=== PATIENT | female | born 1950 | race Caucasian/White ===

== ENCOUNTER 2016-11-04 17:13 | Observation (INO) ==
--- NOTE | 2016-11-04 17:50 | Emergency Department Note ---
Disposition Clinical Impression: Weakness, History of fall, History of knee replacement procedure of right knee Disposition: Admitted As Inpatient Condition: Fair Referrals: NO,PCP [Non-Partnered Physician] - Forms: ED Satisfaction Letter Fall HPI - General Chief Complaint: ED Fall Stated Complaint: fall Time Seen by Provider: 11/04/16 17:20 Source: patient, EMS Mode of arrival: EMS Limitations: no limitations Nursing Notes Reviewed: Yes Vital Signs Reviewed: Yes - History of Present Illness HPI Narrative: Patient relates that she has had her right knee replaced in [facility]. She has been home only a couple days has been having increased difficulty getting up around the house. Today she fell to her knees when she was being assisted to the bathroom. There is significant difficulty getting her just back to a chair and she was transported here by EMS for evaluation. She denies any other point of injury. She states it just felt like her legs buckled because they were weak. She denies increase in any back pain or any numbness or tingling to the legs. She has headache or head injury. She denies neck pain or upper extremity complaints. She is not having chest pain, palpitations or shortness of breath. She has been on relatively aggressive pain medicine and the family had indicated that her speech was sometimes slurred. This may be contributing to some of her weakness. Pt Subjective Complaint: fall Onset (ago): day(s) Fall From: standing Fall Witnessed: yes Place Fall Occurred: home Loss of Consciousness: none Prolonged Down Time?: no Symptoms Prior to Fall: other (This) Context: tripped/slipped Location of injury - extremities: Right: knee Severity: moderate Quality: dull, aching Associated symptoms (after fall): Reports: weakness, unable to walk. Denies: headache, neck pain, numbness, chest pain, shortness of breath, abdominal pain, hematuria, lightheaded, vertigo, confusion - Related Data Home Medications Medication Instructions Recorded Confirmed ALPRAZolam [Xanax 1 MG Tablet] 1 mg PO QID PRN 11/04/16 11/04/16 Allopurinol [Zyloprim 300 MG] 300 mg PO DAILY 11/04/16 11/04/16 Amlodipine Besylate 10 mg PO DAILY 11/04/16 11/04/16 Cephalexin [Keflex] 500 mg PO QID 11/04/16 11/04/16 Clopidogrel Bisulfate [Plavix] 75 mg PO DAILY 11/04/16 11/04/16 Gabapentin [Gralise] 600 mg PO QAM AND QHS 11/04/16 11/04/16 HYDROmorphone [Dilaudid] 2 mg PO Q3H PRN 11/04/16 11/04/16 Levothyroxine [Synthroid] 88 mcg PO 0630 11/04/16 11/04/16 Metoprolol Succinate 100 mg PO DAILY 11/04/16 11/04/16 OxyCODONE/APAP 7.5/325 [Percocet 1 each PO Q4HR PRN 11/04/16 11/04/16 7.5/325 MG] Promethazine [Phenergan] 25 mg PO Q8HR PRN 11/04/16 11/04/16 Rivaroxaban [Xarelto] 10 mg PO DAILY 11/04/16 11/04/16 Rosuvastatin [Crestor] 40 mg PO HS 11/04/16 11/04/16 Valsartan [Diovan] 160 mg PO DAILY 11/04/16 11/04/16 Allergies Allergy/AdvReac Type Severity Reaction Status Date / Time ivp dye Allergy Swelling Uncoded 07/07/16 15:01 of Lip/Tongue/Throat All systems ED: reviewed and negative except as stated. Fall PMH - Past Medical History Medical history: Reports: arthritis (Doubt), hyperlipidemia, hypertension, thyroid disease, other (Morbid obesity) Surgical history: Reports: knee replacement (Right) Psychiatric history: Reports: no psych history - Social History Smoking Status: Never smoker Alcohol use: Reports: none Drug use: Reports: none Physical Exam - General Limitations: no limitations General appearance: alert, in no apparent distress - Head Head exam: atraumatic, normocephalic, normal inspection - Eye Eye exam: Present: normal appearance, PERRL, EOMI - ENT ENT exam: normal exam, normal oropharynx, mucous membranes moist - Neck Neck exam: Present: normal inspection, full ROM, trachea midline - Chest Chest inspection: Present: normal inspection, symmetric chest wall rise. Absent : tenderness - Respiratory Respiratory exam: Present: normal lung sounds bilaterally. Absent: respiratory distress, wheezes, prolonged expiratory phase - Cardiovascular Cardiovascular exam: Present: regular rate, normal rhythm, normal heart sounds. Absent: tachycardia - Abdominal Exam Abdominal exam: Present: soft, Non-Tender, normal bowel sounds. Absent: tenderness, distention, guarding, rebound, rigidity - Expanded Upper Extremity Exam Shoulder exam: Present: normal inspection, full ROM. Absent: tenderness, swelling Arm exam: Present: normal inspection, full ROM Elbow exam: Present: normal inspection, full ROM. Absent: tenderness, swelling Forearm/Wrist exam: Present: normal inspection, full ROM. Absent: tenderness, swelling Hand exam: Present: normal inspection, full ROM. Absent: tenderness, swelling Vascular exam: Normal: capillary refill, radial pulse - Expanded Lower Extremity Exam Hip/Pelvis exam: Present: normal inspection, full ROM. Absent: tenderness, swelling Upper leg exam: Present: normal inspection, full ROM. Absent: tenderness, swelling Knee exam: Present: other (Right knee has intact nehemiah over the anterior aspect of the right knee. School bit of serous drainage from the inferior portion of the incision without any erythema or induration. He has full extension of the knee and can flex to 30 degrees.) Lower leg exam: Present: normal inspection, full ROM Ankle exam: Present: normal inspection, full ROM. Absent: tenderness, swelling Foot/toe exam: Present: normal inspection, full ROM Neurovascular/Tendon exam: Present: normal capillary refill. Absent: motor deficit, sensory deficit, tendon deficit Gait: not tested/not observed - Back Exam Back exam: Present: normal inspection, full ROM. Absent: tenderness, vertebral tenderness - Neurological Exam Neurological exam: Present: alert, oriented X3, CN II-XII intact. Absent: motor sensory deficit - Psychiatric Psychiatric exam: Present: normal affect, normal mood - Skin Skin exam: Present: warm, dry, intact, normal color. Absent: diaphoresis, pallor Course Course Narrative: All the imaging results were discussed with the patient and family. They advised the patient really is too weak at this point for them to be able to manage at home. There are 2 people trying to assist her to the bathroom when she had had her legs give out and she went down onto both knees. They are advised that the physical therapist that comes to the house had to help get her up to a chair. As she was unable to further walk they called the squad to come here. I discussed options with the patient and family and feel it will be necessary to her in the hospital to have renal social worker and physical therapy assessment the morning. She will likely need placement to a rehabilitation facility for strengthening and assistance status post this knee replacement. 1850: Dr. Braga is agreeable to observation at this facility with consults in the morning. Verbal orders have been obtained for her observation period Vital Signs Temperature 100.2 F H 11/04/16 17:15 Pulse Rate 71 11/04/16 17:15 Respiratory Rate 16 11/04/16 17:15 Blood Pressure 123/68 11/04/16 17:15 O2 Sat by Pulse Oximetry 95 11/04/16 17:15 Temperature 100.2 F H 11/04/16 17:15 Pulse Rate 70 11/04/16 18:43 Respiratory Rate 18 11/04/16 18:43 Blood Pressure 114/65 11/04/16 18:43 O2 Sat by Pulse Oximetry 97 11/04/16 18:43 Oxygen Delivery Oxygen Delivery Nasal Cannula Fall - Differential Diagnosis Likely: traumatic injury - Radiology Data Radiology results reviewed: Yes I reviewed the patient's radiology results. Impressions Knee X-Ray 11/04/16 17:20 IMPRESSION: Anterior soft tissue swelling without fracture. D/ / Ananth Springer MD / Ananth Springer MD Interpreting Provider: Ananth Springer MD
[2016-11-04] MEDS ORDERED: Naloxone 0.4 MG/ML INJ IVP PRN (20:41)
[2016-11-04] MEDS ORDERED: MOM Conc 10 ML UD.LIQ PO PRN (20:41)
[2016-11-04] MEDS ORDERED: Ondansetron ODT 4 MG TAB.RAPDIS SL PRN (20:41)
[2016-11-04] MEDS: Gabapentin 300 MG CAPSULE PO SCH (21:50)
[2016-11-04] MEDS: cephALEXin 250 MG CAPSULE PO SCH (21:50)
[2016-11-04] MEDS: *HR* OxyCODONE/APAP 7.5/325 TABLET PO PRN (21:51)
[2016-11-04] MEDS: ALPRAZolam 1 MG TABLET PO PRN (21:51)
[2016-11-05] MEDS: *HR* OxyCODONE/APAP 7.5/325 TABLET PO PRN ×5 (06:13→23:53)
[2016-11-05] MEDS: cephALEXin 250 MG CAPSULE PO SCH (08:29)
[2016-11-05] MEDS: Metoprolol XL (24 HR) Succ 50 MG TAB.ER.24H PO SCH (08:30)
[2016-11-05] MEDS: *HR* Rivaroxaban 10 MG TABLET PO SCH (08:30)
[2016-11-05] MEDS: Gabapentin 300 MG CAPSULE PO SCH ×2 (08:30→21:38)
[2016-11-05] MEDS: amLODIPine 5 MG TABLET PO SCH (08:30)
[2016-11-05] MEDS ORDERED: Valsartan 160 MG TABLET PO SCH (09:00)
--- NOTE | 2016-11-05 12:05 | Internal Med History&Physical ---
Date of Encounter: 11/05/16 Time of Encounter: 11:35 Assessment and Plan (1) History of knee replacement procedure of right knee Current visit: Yes Status: Acute We will continue Xarelto for DVT prophylaxis. She will have physical therapy and occupational therapy evaluation. (2) Hypertension Current visit: Yes Status: Chronic Continue metoprolol and amlodipine. We will hold Diovan and see if azotemia improves. Qualifiers: Hypertension type: essential hypertension Qualified Code(s): I10 - Essential (primary) hypertension (3) CKD (chronic kidney disease) Current visit: Yes Status: Chronic We will hold Diovan and see if azotemia improves. Qualifiers: Chronic kidney disease stage: stage 3 (moderate) Qualified Code(s): N18.3 - Chronic kidney disease, stage 3 (moderate) (4) Hypothyroidism Current visit: Yes Status: Chronic We will check TSH in a.m. Qualifiers: Hypothyroidism type: unspecified Qualified Code(s): E03.9 - Hypothyroidism , unspecified Internal Medicine - H&P: HPI Chief complaint: Fall and knee pain Admitted From: Home Plans for Post Hospital Care: Home History of present illness: Ms. Conrad is a 66 year old female who came to emergency room stating she had a fall after attempting to arise from the toilet at home. She had right total knee replacement 11/01/2016 as a same day surgical procedure at [facility]. She was helped to the floor without significant obvious injury. Her was unable to get her off the floor himself so help was called. She was brought to emergency room and evaluated and admitted to [facility] until further disposition could be made. She states though the fall was a gradual lowering to the floor she still has worse pain in the knee than prior to the episode. Her orthopedic history is significant for left total knee replacement 2012 and cervical spine surgery 2006 with plate and screw repair. She has had right rotator cuff partial tear with conservative therapy. She denies other bone joint or muscle disorders. Past Med Surg Social Fam HX - Past Medical History Medical history: arthritis, hyperlipidemia, hypertension, thyroid disease, other Psychiatric history: no psych history - Past Surgical History Surgical History: knee replacement - Social History Smoking Status: Never smoker Smokeless Tobacco Status: No Alcohol use: none Drug use: none - Family History Mother Living Status: Age at : 75 Hx Family Cancer: Yes (pancreatic) Father Living Status: Age at : 75 Cause of : stroke Hx Family Cancer: Yes Internal Medicine - H&P: Meds ALPRAZolam [Xanax 1 MG Tablet] 1 mg PO QID PRN 11/04/16 [History] Allopurinol [Zyloprim 300 MG] 300 mg PO DAILY 11/04/16 [History] Amlodipine Besylate 10 mg PO DAILY 11/04/16 [History] Cephalexin [Keflex] 500 mg PO QID 11/04/16 [History] Clopidogrel Bisulfate [Plavix] 75 mg PO DAILY 11/04/16 [History] Gabapentin [Gralise] 600 mg PO QAM AND QHS 11/04/16 [History] HYDROmorphone [Dilaudid] 2 mg PO Q3H PRN 11/04/16 [History] Levothyroxine [Synthroid] 88 mcg PO 0630 11/04/16 [History] Metoprolol Succinate 100 mg PO DAILY 11/04/16 [History] OxyCODONE/APAP 7.5/325 [Percocet 7.5/325 MG] 1 each PO Q4HR PRN 11/04/16 [ History] Promethazine [Phenergan] 25 mg PO Q8HR PRN 11/04/16 [History] Rivaroxaban [Xarelto] 10 mg PO DAILY 11/04/16 [History] Rosuvastatin [Crestor] 40 mg PO HS 11/04/16 [History] Valsartan [Diovan] 160 mg PO DAILY 11/04/16 [History] Allergies ivp dye Allergy (Uncoded 07/07/16 15:01) Swelling of Lip/Tongue/Throat All Systems PM: A 10-system review of systems was performed and is negative for pertinent findings except as documented above in the HPI. Review of systems: Gen.: She states her weight has been stable past few months Cardiovascular: She has history of hypertension. She has known ASHD and is status post [place] 2008 followed by a stent placement. Most recent heart catheter was approximately April 2016 without further intervention. She claims she had left leg DVT 1996. She denies pulmonary embolus. She denies heart failure. Respiratory: She is a lifelong nonsmoker and has no known chronic lung disease. She states she has had negative workup for WIL GI: She has had cholecystectomy. She denies disorders of her liver or exocrine pancreas : She has chronic kidney disease stage III from review of labs from December 2013. She was unaware of this. She denies other kidney or bladder disorders. Neurologic: She denies large distribution strokes or seizures. Endocrine: She has hypothyroidism and hyperlipidemia. She denies diabetes. Hemoglobin A1c was 5.8% on 10/30/2015. Hematology/oncology: She denies blood disorders cancers or anemia Psychiatric: She has anxiety but denies depression or other mental health issues Musk skeletal: As per history of present illness. She takes allopurinol. Uric acid level was 4.9 on 11/07/2014. - Constitutional Vitals: Temp Pulse Resp BP Pulse Ox 98.6 F 68 16 114/72 93 11/05/16 11:03 11/05/16 11:03 11/05/16 11:03 11/05/16 11:03 11/05/16 11:03 Exam: Gen.: She is well-developed morbidly obese female lying in bed who appears in no severe distress HEENT: Head is atraumatic normocephalic. Eyes: EOMI. There is no scleral icterus. Mouth: Mucosa is moist. Neck: Supple and nontender. There is no thyromegaly or adenopathy noted. She has a well-healed surgical scar at the base of the neck anteriorly. Heart: Regular without murmurs gallops or ectopics Lungs: No wheezes or crackles heard. Abdomen: Soft and nontender. No masses or guarding noted. Extremities: There is no cyanosis or clubbing noted. She has trace to 1+ edema of the right lower leg and foot. She has nehemiah in anterior right knee area from recent surgery. Incision site appears clean with minimal serous drainage at the distal end. There is a well-healed scar on the left anterior knee from previous total knee replacement surgery. Neurologic: Mental status: She is talkative and seems to be a reliable historian. Cranial nerves: Smile is symmetric. Forehead wrinkles bilaterally. Tongue protrudes midline. EOMI. Motor: There is no pronator drift. Cerebellar: Finger to nose is intact bilaterally. Skin: Warm and dry - VTE Documentation of Mechanical Device: Graduated compression elastic hosiery
[2016-11-05] MEDS: ALPRAZolam 1 MG TABLET PO PRN (21:38)
[2016-11-06] MEDS: *HR* OxyCODONE/APAP 7.5/325 TABLET PO PRN ×3 (06:32→15:52)
[2016-11-06] MEDS: Metoprolol XL (24 HR) Succ 50 MG TAB.ER.24H PO SCH (08:49)
[2016-11-06] MEDS: amLODIPine 5 MG TABLET PO SCH (08:50)
[2016-11-06] MEDS: *HR* Rivaroxaban 10 MG TABLET PO SCH (08:50)
[2016-11-06] MEDS: Gabapentin 300 MG CAPSULE PO SCH ×2 (08:51→20:41)
--- NOTE | 2016-11-06 09:57 | Internal Med Progress Note ---
Date of Encounter: 11/06/16 Time of Encounter: 09:50 - Assessment and plan (1) History of knee replacement procedure of right knee Current Visit: Yes Status: Acute Assessment and plan: November 06. Continue Xarelto and therapy intervention. (2) Hypertension Current Visit: Yes Status: Chronic Assessment and plan: November 06. Continue metoprolol and amlodipine and withhold Diovan. Recheck labs in a.m. Qualifiers: Hypertension type: essential hypertension Qualified Code(s): I10 - Essential (primary) hypertension (3) CKD (chronic kidney disease) Current Visit: Yes Status: Chronic Assessment and plan: November 06. We will recheck labs in a.m. Qualifiers: Chronic kidney disease stage: stage 3 (moderate) Qualified Code(s): N18.3 - Chronic kidney disease, stage 3 (moderate) (4) Hypothyroidism Current Visit: Yes Status: Chronic Assessment and plan: November 06. TSH was minimally elevated at 6.188. Will increase Synthroid to 100 g daily. Qualifiers: Hypothyroidism type: unspecified Qualified Code(s): E03.9 - Hypothyroidism , unspecified - Subjective Interval history: November 06. She has no new complaints. - Constitutional Vitals: Temp Pulse Resp BP Pulse Ox 97.8 F 72 20 115/62 93 11/06/16 06:31 11/06/16 06:31 11/06/16 06:31 11/06/16 06:31 11/06/16 06:31 Exam: She is sitting in chair at bedside. Her affect is bright and cheerful. Reviewed her medications and lab results. I reviewed the social work assistant notes and told her insurance approval to go to [facility] is pending. - VTE Documentation of Mechanical Device: Graduated compression elastic hosiery Consult Discharge Plan - Plan Referrals: Junaid Chaparro [Primary Care Provider] - 1 week
[2016-11-06] MEDS: ALPRAZolam 1 MG TABLET PO PRN ×2 (14:02→20:41)
[2016-11-07] MEDS: *HR* OxyCODONE/APAP 7.5/325 TABLET PO PRN (02:20)
[2016-11-07 05:24] LABS: Basophils # 0.1 K/mcL (0.0-0.2); Basophils % 0.7 %; Eosinophils # 0.4 K/mcL (0.0-0.6); Eosinophils % 4.7 %; Hemoglobin 10.5 g/dL (11.5-15.4); Immature Granulocytes % 0.6 % (0-4); Lymphocytes # 2.4 K/mcL (0.6-4.6); Lymphocytes % 25.5 %; Mean Corpuscular HGB Conc 33.9 g/dL (31.6-35.5); Mean Corpuscular Hemoglobin 31.7 pg (28.0-33.3); Mean Corpuscular Volume 93.7 fL (83.0-100.0); Mean Platelet Volume 9.4 fL (9.4-12.4); Monocytes # 0.8 K/mcL (0.0-1.3); Monocytes % 8.6 %; Neutrophils # 5.7 K/mcL (1.6-8.9); Platelet Count 265 K/mcL (140-400); Red Blood Count 3.31 M/mcL (3.82-4.97); Segmented Neutrophils % 59.9 %
[2016-11-07 05:38] LABS: Alanine Aminotransferase 30 Units/L (0-55); Albumin 2.6 g/dL (3.5-5.0); Albumin/Globulin Ratio 0.7 (1.1-2.2); Alkaline Phosphatase 98 Units/L (38-126); Aspartate Amino Transferase 19 Units/L (5-34); BUN/Creatinine Ratio 19 (6-26); Bilirubin,Total 0.8 mg/dL (0.2-1.2); Blood Urea Nitrogen 15 mg/dL (7-20); Calcium 8.9 mg/dL (8.6-10.8); Carbon Dioxide 24 mEq/L (19-29); Chloride 103 mEq/L (98-109); Globulin 3.8 g/dL (2.4-3.5); Glucose 122 mg/dL (70-99); Osmolality,Calculated 286 (280-300); Potassium 3.8 mEq/L (3.5-4.5); Sodium 137 mEq/L (136-145); Total Protein 6.4 g/dL (6.0-8.3); eGFR For African Americans > 60 (> 60); eGFR For Non-African Americans > 60 (> 60)
[2016-11-07] MEDS: amLODIPine 5 MG TABLET PO SCH (08:37)
[2016-11-07] MEDS: Gabapentin 300 MG CAPSULE PO SCH (08:37)
[2016-11-07] MEDS: Metoprolol XL (24 HR) Succ 50 MG TAB.ER.24H PO SCH (08:38)
[2016-11-07] MEDS: *HR* Rivaroxaban 10 MG TABLET PO SCH (08:39)
[2016-11-07 10:21] VITALS: BP 110/70
--- NOTE | 2016-11-07 11:03 | Discharge Summary ---
Date of Encounter: 11/07/16 Time of Encounter: 10:55 - Discharge Diagnosis (1) History of knee replacement procedure of right knee Priority: Primary Status: Acute (2) Hypertension Priority: Secondary Status: Chronic Qualifiers: Hypertension type: essential hypertension Qualified Code(s): I10 - Essential (primary) hypertension (3) CKD (chronic kidney disease) Priority: Secondary Status: Chronic Qualifiers: Chronic kidney disease stage: stage 3 (moderate) Qualified Code(s): N18.3 - Chronic kidney disease, stage 3 (moderate) (4) Hypothyroidism Priority: Secondary Status: Chronic Qualifiers: Hypothyroidism type: unspecified Qualified Code(s): E03.9 - Hypothyroidism , unspecified - Discharge Medications Home Medications: ALPRAZolam [Xanax 1 MG Tablet] 1 mg PO QID PRN 11/04/16 [History] Allopurinol [Zyloprim 300 MG] 300 mg PO DAILY 11/04/16 [History] Amlodipine Besylate 10 mg PO DAILY 11/04/16 [History] Clopidogrel Bisulfate [Plavix] 75 mg PO DAILY 11/04/16 [History] Gabapentin [Gralise] 600 mg PO QAM AND QHS 11/04/16 [History] HYDROmorphone [Dilaudid] 2 mg PO Q3H PRN 11/04/16 [History] Levothyroxine [Synthroid] 88 mcg PO 0630 11/04/16 [History] Metoprolol Succinate 100 mg PO DAILY 11/04/16 [History] OxyCODONE/APAP 7.5/325 [Percocet 7.5/325 MG] 1 each PO Q4HR PRN 11/04/16 [ History] Promethazine [Phenergan] 25 mg PO Q8HR PRN 11/04/16 [History] Rivaroxaban [Xarelto] 10 mg PO DAILY 11/04/16 [History] Rosuvastatin [Crestor] 40 mg PO HS 11/04/16 [History] Valsartan [Diovan] 160 mg PO DAILY 11/04/16 [History] Allergies/Adverse Reactions: Allergies ivp dye Allergy (Uncoded 07/07/16 15:01) Swelling of Lip/Tongue/Throat Date of admission: 11/04/16 20:18 Primary care physician: Junaid Chaparro Consults: 06/13/17 08:22 Consult to Occupational Therapy [CONS] Routine Comment: Evaluate, develop and implement POC Reason for Consult: R TKR - Patient Status Disposition: Home Health Service Condition: Fair Functional capacity at discharge: uses cane/walker Overall status at discharge: patient is progressing back to baseline - Discharge Instructions Follow Up With: Junaid Chaparro [Primary Care Provider] - 1 week - Diet and Activity Activity: as per physical therapy Diet: advance to your usual diet Hospital course: Ms. Conrad is a 66 year old female who came to emergency room stating she had a fall after attempting to arise from the toilet at home. She had right total knee replacement 11/01/2016 as a same day surgical procedure at [facility]. She was helped to the floor without significant obvious injury. Her was unable to get her off the floor himself so help was called. She was brought to emergency room and evaluated and admitted to [facility] until further disposition could be made. Initial orders were written by the emergency room physician. I saw her on November 05 and performed a history and physical. She had physical therapy and occupational therapy evaluations with ongoing intervention. She made satisfactory progress and was able to walk moderate distances with a wheeled walker. She was successful in navigating a car transfer. Inquiry was made with her insurance for SNF placement but there were no local facilities approved. On November 07 arrangements were completed for her to be discharged home. She will resume home health nursing services from a [facility] agency. She desired to have outpatient therapy continued and this order will be obtained if agreeable from her primary are physician or orthopedic surgeon. - Time Spent with Patient Total time spent providing and/or coordinating discharge services: - Constitutional Vitals: Temp Pulse Resp BP Pulse Ox 98.1 F 72 17 110/70 97 11/07/16 10:20 11/07/16 10:20 11/07/16 10:20 11/07/16 10:20 11/07/16 10:20 - VTE Documentation of Mechanical Device: Graduated compression elastic hosiery
== END 2016-11-07 12:25 | disposition home health service (06) ==
LOC: EMEROOPIK 17:13 → INPPIK 17:13
PROVIDERS: ADMIT Internal Medicine; ATTEND Internal Medicine